=== PATIENT | male | born 2000 | race American Indian/Alaskan Native ===

== ENCOUNTER 2022-01-29 20:35 | Emergency (ER) | payer BC ==
[~2022-01-29] VITALS: Ht 172.7 cm; Wt 77.2 kg
[2022-01-29 20:51] VITALS: BP 170/100
[2022-01-29] MEDS ORDERED: CEPH250T PO (23:19)
[2022-01-29] MEDS ORDERED: LIDOcaine 1.5% w/epinephrine 1:200,000 5ml ampul IJ ONE (23:20)
[2022-01-29] MEDS ORDERED: LIDOCAINE 2% w/EPI 1:100:000 30mL injection MDV**cath lab 1 only INJ ONE (23:25)
[2022-01-29] MEDS ORDERED: TETanus/Pertussis (Acell)/Diphther VAC/PF (Tdap-Adult) 0.5ml syringe IMVAC ONE (23:40)
== END 2022-01-30 00:15 | disposition home or self-care (01) ==
LOC: ER 20:36
DX: S81.011A Laceration without foreign body, right knee, initial encounter (principal); Z88.8 Allergy status to other drugs, medicaments and biological substances; Z79.2 Long term (current) use of antibiotics; Z79.899 Other long term (current) drug therapy; V28.0XXA Motorcycle driver injured in noncollision transport accident in nontraffic accident, initial encounter; Y93.89 Activity, other specified; Y92.89 Other specified places as the place of occurrence of the external cause; Y99.8 Other external cause status
CPT/HCPCS: 12002; 90471; 90715; 99283